=== PATIENT | female | born 1970 | race Caucasian/White ===

== ENCOUNTER 2024-04-08 14:46 | Emergency (ER) | payer OTHER ==
[2024-04-08 15:19] VITALS: BP 148/89; PULSE 82; RESP 20; TEMP 98; BMI 22.3
[2024-04-08 16:17] LABS: BASO % 0.6 % (0-2.0); EOS % 0.9 % (0-4.5); HEMATOCRIT 38.1 % (32.4-45.2); HEMOGLOBIN 12.5 GM/dL (10.7-15.3); LYMPH % 18.5 % (8-40); MCHC 32.7 g/dl (32.0-36.0); MEAN CELL VOLUME 73.3 fl (80-96); MEAN PLT VOLUME 8.4 fl (7.5-11.1); MONO % 6.3 % (3.8-10.2); NEUT % 73.7 % (42.8-82.8); PLATELET COUNT 356 10^3/uL (134-434); RDW 34.5 % (11.6-15.6); WHITE BLOOD COUNT 9.1 K/mm3 (4.0-10.0)
[2024-04-08 16:22] LABS: EPI CELLS >36 /uL (0-25.1); HYALINE CASTS 1 /uL (0-3.1); PH,URINE 5.5 (5.0-8.0); URINE APPEARANCE CLOUDY; URINE BACTERIA 2273 /uL (0-1359); URINE BILIRUBIN NEGATIVE (NEGATIVE); URINE COLOR YELLOW; URINE GLUCOSE (UA) NEGATIVE (NEGATIVE); URINE KETONE NEGATIVE (NEGATIVE); URINE LEUK ESTERASE NEGATIVE (NEGATIVE); URINE NITRITE NEGATIVE (NEGATIVE); URINE PROTEIN 1+ (NEGATIVE); URINE RBC 4 /uL (0-23.9); URINE UROBILINOGEN 0.2 mg/dL (0.2-1.0)
[2024-04-08] MEDS ORDERED: KETOROLAC TROMETHAMINE 30 MG/1 ML VIAL ONE (16:29)
[2024-04-08 16:39] LABS: POTASSIUM 4.8 mmol/L (3.5-5.1)
[2024-04-08 16:41] LABS: CALCIUM 9.3 mg/dL (8.5-10.1)
[2024-04-08 16:42] LABS: ALBUMIN 3.9 g/dl (3.4-5.0); BLOOD UREA NITROGEN 12.5 mg/dL (7-18)
[2024-04-08 16:45] LABS: CREATININE 0.7 mg/dL (0.55-1.3)
[2024-04-08 16:46] LABS: TOT PROT 7.4 g/dl (6.4-8.2)
[2024-04-08 16:47] LABS: BILIRUBIN,TOTAL 0.3 mg/dL (0.2-1)
[2024-04-08] MEDS: SODIUM CHLORIDE 0.9% 500 ML INFUS.BAG IV ONE (16:56)
[2024-04-08] MEDS: KETOROLAC TROMETHAMINE 30 MG/1 ML VIAL IVPUSH ONE (16:57)
[2024-04-08 19:21] LABS: URINE WBC 60.5 /uL (0-25.8)
== END 2024-04-08 19:07 | disposition home or self-care (01) ==
LOC: JER 14:46
PROC: 3E0333Z Introduction of Anti-inflammatory into Peripheral Vein, Percutaneous Approach (ICD-10-PCS; principal; 2024-04-08)
DX: D27.1 Benign neoplasm of left ovary (principal); R10.32 Left lower quadrant pain
CPT/HCPCS: 36415; 74177-TC; 80053; 81003; 85025; 87086; 99285-25; Q9967